=== PATIENT | male | born 1985 | race Caucasian/White ===

== ENCOUNTER 2017-09-29 08:59 | Emergency (ER) | payer MEDICAID ==
[2017-09-29 11:57] LABS: ADD UMIC NO; UR ASCORBIC ACID NEGATIVE (NEGATIVE); UR BILIRUBIN (Dip) NEGATIVE (NEGATIVE); UR BLOOD (Dip) NEGATIVE (NEGATIVE); UR CLARITY CLEAR (CLEAR); UR COLOR COLORLESS (YELLOW); UR GLUCOSE (Dip) NEGATIVE (NEGATIVE); UR KETONES (Dip) NEGATIVE (NEGATIVE); UR LEUKOCYTE ESTERASE (Dip) NEGATIVE Leu/ul (NEGATIVE); UR NITRITE (Dip) NEGATIVE (NEGATIVE); UR SPECIFIC GRAVITY (Dip) 1.004 (1.003-1.030); UR TOTAL PROTEIN (Dip) NEGATIVE (NEGATIVE); UR UROBILINOGEN (Dip) NEGATIVE (NEGATIVE)
== END 2017-09-29 13:07 | disposition home or self-care (01) ==
LOC: FTE 08:59
DX: N50.811 Right testicular pain (principal)
CPT/HCPCS: 74176; 76870; 81003; 87086; 87591; 99285-25

== ENCOUNTER 2018-04-10 08:29 | Emergency (ER) | payer MEDICAID ==
[2018-04-10] MEDS ORDERED: BUPIVACAINE 0.25% (MPF) 10 ML 10 ML VIAL INJ (09:00)
[2018-04-10] MEDS: LIDOCAINE 5% PATCH TD (09:34)
[2018-04-10] MEDS: BUPIVACAINE 0.25% (MPF) 30 ML INJ INJ (09:34)
== END 2018-04-10 10:22 | disposition home or self-care (01) ==
LOC: FTE 08:29
DX: S39.012A Strain of muscle, fascia and tendon of lower back, initial encounter (principal); X58.XXXA Exposure to other specified factors, initial encounter; Y92.89 Other specified places as the place of occurrence of the external cause
CPT/HCPCS: 99283; Z7502